=== PATIENT | female | born 1990 | race Caucasian/White ===

== ENCOUNTER 2025-02-18 12:27 | Emergency (ER) | payer SELFPAY | END 2025-02-18 16:51 | disposition home or self-care (01) | LOC: MW.ED 12:27 | DX: S83.92XA Sprain of unspecified site of left knee, initial encounter (principal); Z79.899 Other long term (current) drug therapy; X58.XXXA Exposure to other specified factors, initial encounter | CPT/HCPCS: 73562-26-LT; 73562-LT; 99283 ==

== ENCOUNTER 2025-03-12 23:18 | Emergency (ER) | payer SELFPAY ==
[2025-03-13] MEDS: Ketorolac 30 MG/ML SDV IM ONE (00:09)
== END 2025-03-12 23:35 | disposition home or self-care (01) ==
LOC: MW.ED 23:18
DX: M46.1 Sacroiliitis, not elsewhere classified (principal)
CPT/HCPCS: 99282; 99283

== ENCOUNTER 2025-05-24 17:20 | Emergency (ER) | payer MEDICAID | END 2025-05-24 18:02 | disposition left against medical advice (07) | LOC: MW.ED 17:20 | DX: Z53.21 Procedure and treatment not carried out due to patient leaving prior to being seen by health care provider (principal) ==

== ENCOUNTER 2025-06-02 15:10 | Emergency (ER) | payer SELFPAY ==
[2025-06-02] MEDS: Benzocaine 20% Topical Spray UD MUCMEM ONE (15:45)
[2025-06-02] MEDS: Lidocaine 2% Viscous Solution 15 ML UD PO ONE (15:46)
== END 2025-06-02 16:05 | disposition home or self-care (01) ==
LOC: MW.ED 15:10
DX: K08.89 Other specified disorders of teeth and supporting structures (principal); Z79.899 Other long term (current) drug therapy
CPT/HCPCS: 99282; A9270; J3490; 99283